=== PATIENT | female | born 1975 | race Caucasian/White ===

== ENCOUNTER 2021-03-16 05:46 | Observation (INO) ==
--- NOTE | 2021-02-22 09:48 | PAT Medication Instructions ---
Medication Instructions Date of Service February 22, 2021 Home Medications biotin 10,000 mcg disintegrating tablet 10,000 mcg PO QAM calcium citrate 500 mg PO BID diphenhydramine HCl 25 mg capsule 25 mg PO TID PRN epinephrine 0.3 mg/0.3 mL injection, auto-injector 0.3 mg IM Q10M PRN escitalopram oxalate 10 mg tablet 10 mg PO Q2D fexofenadine 180 mg tablet 180 mg PO QAM fluconazole 150 mg tablet 150 mg PO WKkrill oil 500 mg capsule 500 mg PO QAM levonorgestrel 20 mcg/24 hours (6 yrs) 52 mg intrauterine device 1 device INTRAUTERINE UD magnesium amino acid chelate 100 mg tablet 100 mg PO QAM mefenamic acid 250 mg capsule 250 mg PO Q6H PRN multivitamin with minerals 1 tab PO QAM valacyclovir 500 mg tablet 500 mg PO Q2D zinc 50 mg tablet 50 mg PO QAM Iron With C-Otc 55 mg PO QAM cholecalciferol (vitamin D3) [Vitamin D3] 125 mcg PO QAM cyanocobalamin (vitamin B-12) 500 mcg INTRANASAL WK turmeric root extract 500 mg PO QAM Continue as directed epinephrine 0.3 mg/0.3 mL injection, auto-injector 0.3 mg IM Q10M PRN (if needed) levonorgestrel 20 mcg/24 hours (6 yrs) 52 mg intrauterine device 1 device INTRAUTERINE UD fluconazole 150 mg tablet 150 mg PO WK ASK your surgeon for instructions mefenamic acid 250 mg capsule 250 mg PO Q6H PRN STOP taking 2 weeks before surgery (or as soon as possible if surgery is within 2 weeks) krill oil 500 mg capsule 500 mg PO QAM magnesium amino acid chelate 100 mg tablet 100 mg PO QAM turmeric root extract 500 mg PO QAM DO NOT take the morning of surgery biotin 10,000 mcg disintegrating tablet 10,000 mcg PO QAM calcium citrate 500 mg PO BID diphenhydramine HCl 25 mg capsule 25 mg PO TID PRN fexofenadine 180 mg tablet 180 mg PO QAM magnesium amino acid chelate 100 mg tablet 100 mg PO QAM multivitamin with minerals 1 tab PO QAM zinc 50 mg tablet 50 mg PO QAM Iron With C-Otc 55 mg PO QAM cholecalciferol (vitamin D3) [Vitamin D3] 125 mcg PO QAM cyanocobalamin (vitamin B-12) 500 mcg INTRANASAL WK Take morning of surgery With a small sip of water, OTHERWISE NOTHING TO EAT OR DRINK AFTER MIDNIGHT: escitalopram oxalate 10 mg tablet 10 mg PO Q2D (if scheduled to take day of surgery) valacyclovir 500 mg tablet 500 mg PO Q2D (if scheduled to take day of surgery) Take evening before surgery calcium citrate 500 mg PO BID diphenhydramine HCl 25 mg capsule 25 mg PO TID PRN (if needed) mefenamic acid 250 mg capsule 250 mg PO Q6H PRN (if needed) Other Notes If you have any questions please call us at [phone] or [phone] or [phone] or [phone]
--- NOTE | 2021-02-26 09:06 | Anesthesiology Consultation ---
Date of Service February 26, 2021 Assessment & Plan (1) Encounter for pre-operative examination: COVID screening: Per assessment on 02/26: Travel screen negative, no known COVID- 19 positive contacts or current COVID-19 related symptoms. Patient fully vaccinated. Surgeon arranging preop COVID testing. Awaiting results. Chart Review Chart Review: Acceptable Risk for Surgery and Patient seen in Pre Admission Testing Teaching & Discussion Pre-Anesthesia Teaching/Discussion Notes: Instructed NPO after midnight before surgery,except medications with 15 cc of water. Medication instructions provided according to the PAT guidelines. History Surgery Operation Date: 03/16/21 07:15 Proposed Procedures p Right Total Knee Arthroplasty - Mark Barrera, Height/Weight Height: 5 ft 10 in Weight: 107.3 kg Allergies Allergy/AdvReac Type Severity Reaction Status Date / Time adhesive Allergy Unknown Tapes/bandaids- Verified 02/23/21 14:26 red swelling, welts strawberry Allergy Unknown Tongue Verified 02/23/21 14:26 swelling, bumps latex AdvReac Unknown Mouth Verified 02/23/21 14:26 swelling (dental procedure/latex gloves) Medications Home Medications Medication Instructions Recorded Confirmed Last Taken biotin 10,000 mcg disintegrating 10,000 mcg PO QAM 10/18/20 02/08/21 Unknown tablet calcium citrate 500 mg PO BID 10/18/20 02/08/21 Unknown diphenhydramine HCl 25 mg capsule 25 mg PO TID PRN 10/18/20 02/08/21 Unknown epinephrine 0.3 mg/0.3 mL 0.3 mg IM Q10M PRN 10/18/20 02/08/21 Unknown injection, auto-injector escitalopram oxalate 10 mg tablet 10 mg PO Q2D 10/18/20 02/08/21 Unknown fexofenadine 180 mg tablet 180 mg PO QAM 10/18/20 02/08/21 Unknown fluconazole 150 mg tablet 150 mg PO WK 10/18/20 02/08/21 Unknown krill oil 500 mg capsule 500 mg PO QAM 10/18/20 02/08/21 Unknown levonorgestrel 20 mcg/24 hours (6 1 device INTRAUTERINE UD 10/18/20 02/08/21 Unknown yrs) 52 mg intrauterine device magnesium amino acid chelate 100 100 mg PO QAM 10/18/20 02/08/21 Unknown mg tablet mefenamic acid 250 mg capsule 250 mg PO Q6H PRN 10/18/20 02/08/21 Unknown multivitamin with minerals 1 tab PO QAM 10/18/20 02/08/21 Unknown valacyclovir 500 mg tablet 500 mg PO Q2D 10/18/20 02/08/21 Unknown zinc 50 mg tablet 50 mg PO QAM 10/18/20 02/08/21 Unknown Iron With C-Otc 55 mg PO QAM 02/08/21 02/08/21 Unknown cholecalciferol (vitamin D3) 125 mcg PO QAM 02/08/21 02/08/21 Unknown [Vitamin D3] cyanocobalamin (vitamin B-12) 500 mcg INTRANASAL WK 02/08/21 02/08/21 Unknown turmeric root extract 500 mg PO QAM 02/08/21 02/08/21 Unknown escitalopram oxalate 10 mg tablet 10 mg PO DAILY 02/26/21 02/26/21 Unknown meloxicam 15 mg tablet 15 mg PO DAILY #30 tab 02/26/21 02/26/21 Unknown Past Medical History Medical History Anxiety Cancer Cervical (precancerous) Chronic back pain LBP Depression Obesity Osteoarthritis Sleep apnea Hx- subsequent 230 pound weight loss 4+ years ago with resolution in issues but no official retesting Stomach ulcer Hx (no recent issues) Exercise / Class Metabolic Activity II 4-5 Yardwork/Stairs/Walk up hill (several flights (at gym)- no chest pain, no sob) Past Family History Family History Mother Family history of reaction to anesthesia SLOW TO WAKE UP Father Family history of diabetes mellitus Other Deep vein thrombosis Diabetes Heart disease Stroke Past Surgical History Surgical History Gastric bypass status for obesity 2017 H/O LEEP History of arthroscopy R/L knee History of cholecystectomy History of foot surgery Rx1, Lx2 History of repair of rotator cuff Rx2, Lx1 Past Anesthesia History Patient: Slow for anesthesia induction, Fast with emergence per pt Mother: "slow to wake" History of PONV No Hx of PONV and No Hx of Motion Sickness Social History Smoking Status: Former smoker Do You Dip or Chew Tobacco: No Smoking End Date: Quit in college Hx Alcohol Use: Yes Alcohol type: wine alcohol intake frequency: a few times a month Hx Substance Use: No Review of Systems Patient denies chest pain, shortness of breath, dyspnea on exertion, fever, chills, cough, wheezing, palpitations. Physical Exam Vital Signs VITALS BP 124/81 P 63 TEMP 98.1 SP02 96%RA RESP 16 PHYSICAL Full cervical extension range of motion. Full TMJ range of motion. TMD 3.5 finger breaths Mallampati Score 2 Dentition: intact, + eight crowns (molars), upper left molar multiple root canals/irritated > dentist monitoring, decision for any further dental work for after surgery per dentist/surgeon Lungs: clear throughout to auscultation Cardiac: regular rate and rhythm, no murmurs noted Spine: normal Extremities: no edema Testing Laboratory Results 02/26/21 10:06 02/26/21 10:06 PT 10.1 Seconds (9.0-12.0) 02/26/21 10:06 INR 1.0 (0.9-1.1) 02/26/21 10:06 APTT 24.7 Seconds (21.0-31.0) 02/26/21 10:06 Blood Type O Positive 02/26/21 10:06 Antibody Screen NEGATIVE 02/26/21 10:06 Electrocardiogram Date: 02/26/21 Findings: + SB @ (54) Chest X-Ray Date: 02/26/21 FINDINGS: Lung volumes are normal. Lungs are clear. There is no pneumothorax or pleural effusion. Cardiac size is normal. Mediastinal contours are normal. There is no evidence for pulmonary edema. Incidental note is made of cholecystectomy clips. IMPRESSION: No acute cardiopulmonary findings.
[2021-02-26 10:31] LABS: Basophils # (auto) 0.04 K/uL (0-0.2); Basophils % (auto) 0.6 %; Eosinophils # (auto) 0.31 K/uL (0-0.5); Eosinophils % (auto) 4.8 %; Hematocrit (blood only) 38.8 % (37-47); Hemoglobin 12.5 g/dL (12.0-16.0); Immature Granulocytes # (auto) 0.01 K/uL (0.00-0.02); Immature Granulocytes % (auto) 0.2 %; Lymphocytes # (auto) 1.67 K/uL (1.2-3.4); Lymphocytes % (auto) 25.9 %; Mean Corpuscular Hemoglobin 29.9 pg (25-34); Mean Corpuscular Hgb Conc 32.2 g/dL (32-36); Mean Corpuscular Volume 92.8 fL (80-100); Mean Platelet Volume 9.5 fL (7.4-10.4); Monocytes # (auto) 0.84 K/uL (0.11-0.59); Neutrophils # (auto) 3.57 K/uL (1.4-6.5); Neutrophils % (auto) 55.5 %; Platelet Count 218 K/uL (130-400); RDW Coefficient of Variation 13.7 % (11.5-14.5); RDW Standard Deviation 46.6 fL (36.4-46.3); Red Blood Count 4.18 M/uL (4.2-5.4); White Blood Count 6.44 K/uL (4.8-10.8)
[2021-02-26 10:49] LABS: Partial Thromboplastin Ratio 0.9; Partial Thromboplastin Time 24.7 Seconds (21.0-31.0); Prothrombin Time 10.1 Seconds (9.0-12.0)
--- NOTE | 2021-02-26 11:02 | XRay Report ---
XR chest Pre-admission PA/Lat CLINICAL HISTORY: Preoperative evaluation. COMPARISON STUDY: No previous studies for comparison. FINDINGS: Lung volumes are normal. Lungs are clear. There is no pneumothorax or pleural effusion. Car diac size is normal. Mediastinal contours are normal. There is no evidence for pulmonary edema. Incid ental note is made of cholecystectomy clips. IMPRESSION: No acute cardiopulmonary findings. ACT 112: Negative or not required by law. Electronically signed by: Manuel Martínez M.D. 02/26/2021 11:01 AM
[2021-02-26 12:16] LABS: BUN Creatinine Ratio 42.3 (10-20); Creatinine Clr Calc Pharmacy 190.3 ml/min; Est GFR (African American) 135.4; Est GFR (Non-African American) 116.8; Potassium 4.5 mmol/L (3.5-5.1)
--- NOTE | 2021-02-26 14:49 | Electrocardiogram Report ---
Test Reason : Blood Pressure : / mmHG Vent. Rate : 054 BPM Atrial Rate : 054 BPM P-R Int : 168 ms QRS Dur : 104 ms QT Int : 402 ms P-R-T Axes : 024 008 054 degrees QTc Int : 381 ms Sinus bradycardia Otherwise normal ECG No previous ECGs available Confirmed by Alfred Edwards ([id number]) on 02/26/2021 2:49:13 PM Referred By: Mark Barrera Confirmed By:Alfred Edwards
--- NOTE | 2021-03-15 07:42 | History & Physical Report ---
Date of Service March 15, 2021 Assessment & Plan (1) Osteoarthritis of right knee: We will proceed with a right total knee arthroplasty. Postoperatively she will be kept overnight in the hospital for postoperative medical management. She will be started on aspirin for DVT prophylaxis. She plans to use energy physical therapy upon discharge. History of Present Illness Chief Complaint: Osteoarthritis of the right knee. Primary Care Provider: Shirley Davis MD Rosalina is a pleasant 45-year-old female who has been dealing with chronic incre asing right knee pain. She does have a history of a right knee arthroscopy done 7 years ago in [facility]. She is been treated conservatively for a long period of time. Unfortunate she is having worsening knee pain. X-rays and clinical examination have been diagnostic for advanced osteoarthritis of the right knee. After failing conservative treatment, she has elected proceed with a right total knee arthroplasty.. Allergies Allergy/AdvReac Type Severity Reaction Status Date / Time adhesive Allergy Unknown Tapes/bandaids- Verified 02/23/21 14:26 red swelling, welts strawberry Allergy Unknown Tongue Verified 02/23/21 14:26 swelling, bumps latex AdvReac Unknown Mouth Verified 02/23/21 14:26 swelling (dental procedure/latex gloves) Home Medications Medication Instructions Recorded Confirmed Type biotin 10,000 mcg disintegrating 10,000 mcg PO QAM 10/18/20 02/08/21 History tablet calcium citrate 500 mg PO BID 10/18/20 02/08/21 History diphenhydramine HCl 25 mg capsule 25 mg PO TID PRN 10/18/20 02/08/21 History epinephrine 0.3 mg/0.3 mL 0.3 mg IM Q10M PRN 10/18/20 02/08/21 History injection, auto-injector escitalopram oxalate 10 mg tablet 10 mg PO Q2D 10/18/20 02/08/21 History fexofenadine 180 mg tablet 180 mg PO QAM 10/18/20 02/08/21 History fluconazole 150 mg tablet 150 mg PO WK 10/18/20 02/08/21 History krill oil 500 mg capsule 500 mg PO QAM 10/18/20 02/08/21 History levonorgestrel 20 mcg/24 hours (6 1 device INTRAUTERINE UD 10/18/20 02/08/21 History yrs) 52 mg intrauterine device magnesium amino acid chelate 100 100 mg PO QAM 10/18/20 02/08/21 History mg tablet mefenamic acid 250 mg capsule 250 mg PO Q6H PRN 10/18/20 02/08/21 History multivitamin with minerals 1 tab PO QAM 10/18/20 02/08/21 History valacyclovir 500 mg tablet 500 mg PO Q2D 10/18/20 02/08/21 History zinc 50 mg tablet 50 mg PO QAM 10/18/20 02/08/21 History Iron With C-Otc 55 mg PO QAM 02/08/21 02/08/21 History cholecalciferol (vitamin D3) 125 mcg PO QAM 02/08/21 02/08/21 History [Vitamin D3] cyanocobalamin (vitamin B-12) 500 mcg INTRANASAL WK 02/08/21 02/08/21 History turmeric root extract 500 mg PO QAM 02/08/21 02/08/21 History escitalopram oxalate 10 mg tablet 10 mg PO DAILY 02/26/21 02/26/21 History meloxicam 15 mg tablet 15 mg PO DAILY #30 tab 02/26/21 02/26/21 Rx Past Med/Surg History Medical History Anxiety Cancer Cervical (precancerous) Chronic back pain LBP Depression Obesity Osteoarthritis Sleep apnea Hx- subsequent 230 pound weight loss 4+ years ago with resolution in issues but no official retesting Stomach ulcer Hx (no recent issues) Surgical History Gastric bypass status for obesity 2016 H/O LEEP History of arthroscopy R/L knee History of cholecystectomy History of foot surgery Rx1, Lx2 History of repair of rotator cuff Rx2, Lx1 Family History Mother Family history of reaction to anesthesia SLOW TO WAKE UP Father Family history of diabetes mellitus Other Deep vein thrombosis Diabetes Heart disease Stroke Social History Smoking Status: Former smoker Second Hand Exposure: No; Hx Alcohol Use: Yes Alcohol type: wine Hx Substance Use: No Preferred Language: [place] Communication Ability: Effective [employer] B[employer] Required: No Beliefs That Will Affect Care: None Current Living Situation: Spouse Feels Safe at Home: Yes Assistive Devices: Brace/Splint/Immobilizer, Glasses and Walker Review of Systems All systems reviewed & are unremarkable except as noted in HPI & below. Physical Exam On physical examination of the right knee, she has decent motion from 0 to 130 degrees. She has no instability. She has tenderness palpation of the distal medial femoral condyle and over the medial joint line.. Constitutional WD/WN, vitals as above Eyes PERRL, conjunctivae normal, anicteric sclerae ENMT external ear and nose normal, oropharynx normal Neck trachea midline, no thyromegaly Respiratory normal respiratory effort Cardiovascular RRR, no murmur, no edema Gastrointestinal (Abdomen) normal bowel sounds, soft, nontender, no hepatosplenomegaly Psychiatric A+Ox3, euthymic affect Results & Data Results & Data Laboratory Results . Diagnostic Findings X-rays of the right knee do show advanced osteoarthritis with joint space narrowing, osteophyte formation, and [id number] articulation.. PG Care Time/CCT Total # of Minutes Spent Total Time Spent with Patient: Total time spent is greater than 50% in coordination of care (as documented) at patient's floor/unit and/or counseling patient: Coding Level of Care Code None Diagnoses Osteoarthritis of right knee M17.11
[2021-03-16] MEDS ORDERED: TRANEXAMIC ACID 1,000 MG **IV Intra-op IV SCH (06:00)
[2021-03-16] MEDS ORDERED: LR 500ML BOLUS, THEN 15ML/HR IV SCH (06:00)
[2021-03-16] MEDS ORDERED: LR 60ML/HR IV SCH (06:00)
[2021-03-16] MEDS ORDERED: TRANEXAMIC ACID 1,000 MG **IV Pre-op IV SCH (06:00)
[2021-03-16] MEDS ORDERED: ceFAZolin 2000MG 2,000 MG/15 ML SYR IV SCH (06:00)
[2021-03-16] MEDS ORDERED: GABAPENTIN 900 MG DOSE PO SCH (06:00)
[2021-03-16] MEDS ORDERED: ROPIVACAINE 0.5% HCL/PF 150 MG, BUPIVACAINE 0.75% MPF 20 ML, EPINEPHrine 30MG/30ML (OR ... INFIL SCH (06:00)
[2021-03-16] MEDS ORDERED: dexAMETHasone 4 MG TAB PO SCH (06:00)
[2021-03-16] MEDS ORDERED: FAMOTIDINE 20 MG TAB PO SCH (06:00)
[2021-03-16] MEDS ORDERED: ACETAMINOPHEN 500 MG TAB PO SCH (06:00)
[2021-03-16] MEDS ORDERED: BUPIVACAINE 0.25% 30 ML VIAL ONE (06:25)
[2021-03-16] MEDS ORDERED: EPINEPHrine INJ 1 MG/ML AMP ONE (06:25)
[2021-03-16] MEDS ORDERED: BUPIVACAINE 0.5 % 5 MG/1 ML PF 10ML VIAL ONE (06:25)
--- NOTE | 2021-03-16 06:42 | History & Physical Bridge Note ---
Date of Service March 16, 2021 History & Physical Bridge Note I have examined the patient, reviewed the History & Physical and in the interval since the performance of the History & Physical I have noted the following changes of clinical significance: no changes noted
[2021-03-16] MEDS ORDERED: MIDAZOLAM HCL 1 MG/ML 2ML VIAL ONE ×2 (06:58→08:12)
[2021-03-16] MEDS ORDERED: fentaNYL citrate 100 MCG/2 ML VIAL ONE (06:58)
[2021-03-16] MEDS ORDERED: ORTHO JOINT ANESTHETIC ONE (07:29)
[2021-03-16] MEDS ORDERED: ATROPINE SULFATE 0.1 MG/ML 10ML SYR IV PRN (07:34)
[2021-03-16] MEDS ORDERED: ONDANSETRON INJ 2 MG/ML 2 ML VIAL IV PRN ×2 (07:34→10:37)
[2021-03-16] MEDS ORDERED: ePHEDrine sulfate 50 MG/ML AMP IV PRN (07:34)
[2021-03-16] MEDS ORDERED: MoRPHine SULFATE 10 MG/ML CARP/VIAL IV PRN (07:34)
[2021-03-16] MEDS ORDERED: PROPOFOL IV EMULSION 10 MG/ML 20 ML VIAL IV ONE ×4 (08:07→08:21)
[2021-03-16] MEDS ORDERED: KETAMINE 50 MG/5 ML SYRINGE ONE (08:13)
--- NOTE | 2021-03-16 09:18 | Operative Report ---
PG Post Operative Report Pre & Post Diagnosis Operation Date: 03/16/21 08:30 Pre-Op Diagnosis: Right Knee Degenerative Joint Disease Post-Op Diagnosis: Right Knee Degenerative Joint Disease I identified the patient and participated in the time-out.: Yes Procedure Operation Date: 03/16/21 08:30 Actual Procedures p Right Total Knee Arthroplasty(Right) - Mark Barrera DO Surgeon Mark Barrera DO Internal Medicine Nurse Mark Loja PAC Estimated Blood Loss 10 Findings Consistent with Post-Op Diagnosis Specimens Right femoral and tibial bone Complications none Disposition Disposition: Recovery Room Indications Rosalina is a pleasant 45-year-old female who is been dealing with chronic increasing right knee pain. She said long-term conservative treatment to the right knee. She had a right knee scope 7 years ago. Unfortunately she has developed significant medial compartment arthritis. After failing years of conservative treatment, she has elected proceed with a right total knee arthroplasty. Description of Procedure Implants used: I used a Ramon Persona total knee arthroplasty system with a size 10 narrow femur, E tibia, 32 patella, and a size 10 medial congruent polyethylene bearing. All components were cemented in place with Simplex HV cement. Rosalina arrived [facility] for the above procedure. She was seen in the preoperative holding area and the operative extremity was identified and signed. She was given a preoperative antibiotic, TXA, a spinal anesthetic and an adductor nerve block. She was taken back to the operating room and laid on the table in supine position. She was given basic sedation. The operative knee was then prepped and draped in sterile fashion. A timeout was done, and the patient and the operative extremity was properly identified. A midline incision was made directly over the patella. Dissection was taken down to the extensor mechanism. A subvastus arthrotomy was used. The medial retinaculum was released and the fat pad was mostly excised. The knee was flexed and the ACL, PCL, and meniscus were removed. A drill was sent down the center of the femoral canal followed by an intramedullary dorcas. Off that dorcas a distal femoral cutting block was placed. 9 mm was resected off the distal femur at 5 of valgus. A posterior referencing AP sizing guide was then placed on the distal femur. The femur measured to be a size 10 narrow. 2 drill holes were placed in 3 of external rotation. A 4-in-1 cutting block was then impacted into place. Anterior, posterior, and chamfer cuts were then made. The proximal tibia was then exposed. An external tibial alignment guide was placed. A tibial cut guide was then anchored in place and the proximal tibia was then resected. The posterior aspect of the knee was then opened up and any additional meniscus fragments and osteophytes were removed. The tibia measured to be a size E. The tibial plate was then placed in the appropriate rotation and the tibia was drilled and punched. Trial components were then placed. I used a size 10 medial congruent polyethylene insert. The knee was brought through a full range of motion and felt to be stable. The peg holes for the femoral component were then drilled. The patella was then everted and 9 mm was resected off the posterior aspect of the patella. The patella measured to be a size 32. 3 peg holes were then drilled. A trial patella was placed. The knee was once again brought through a full range of motion and felt to be stable. Trial components were then removed. The surrounding soft tissues were injected with 100 cc of an orthopedic pain control cocktail. All components were then cemented into place with Simplex HV cement. The final polyethylene insert was then snapped into place. Once cement was dry the tourniquet was deflated. Hemostasis was obtained. A dilute betadyne lavage was then done for 3 minutes. The joint was then irrigated with normal saline solution. The subvastus arthrotomy was then closed with #1 Vicryl suture. The skin was closed with 2-0 Vicryl, 3-0V lock suture, and macey. A Silverlon and a soft compressive dressing were placed. She was then transferred to a hospital bed and taken to the postanesthesia care unit in stable condition. She tolerated the procedure well. Mark Loja PA-C, was present for the entire procedure. He was critical for patient positioning, prepping, draping, retraction exposure, wound closure and application of sterile dressing. I attest to the content of the Intraoperative Record and any orders documented therein. Any exceptions are noted below.
[2021-03-16] MEDS ORDERED: oxyCODONE HCL IR 5 MG TAB (IMMEDIATE RELEASE) PO PRN (10:37)
[2021-03-16] MEDS ORDERED: NALOXONE HCL 0.4 MG/1 ML VIAL/CARP IV PRN (10:37)
[2021-03-16] MEDS ORDERED: METOCLOPRAMIDE HCL INJ 5 MG/ML 2 ML VIAL IV PRN (10:37)
[2021-03-16] MEDS ORDERED: bisacodyL 10 MG SUPP PR PRN (10:37)
[2021-03-16] MEDS ORDERED: MAGNESIUM HYDROXIDE SUSP 30 ML UDC PO PRN (10:37)
[2021-03-16] MEDS ORDERED: HYDROmorphone INJ 0.5 MG/0.5 ML SYR IV PRN (10:37)
[2021-03-16] MEDS ORDERED: EPINEPHrine ADULT AUTO-INJECT 0.3 MG SYR IM PRN (10:37)
[2021-03-16] MEDS ORDERED: MEFENAMIC ACID PO PRN (10:37)
--- NOTE | 2021-03-16 10:47 | XRay Report ---
XR knee RT 1 or 2V routine CLINICAL HISTORY: Surgical Post Op COMPARISON: 10/18/2020 DISCUSSION: There are postsurgical changes of a total right knee arthroplasty and patellar resurfacin g. The femoral tibial components appear well seated. There are overlying skin macey. There is gas p resent within the soft tissues consistent with recent surgery. IMPRESSION: Postsurgical changes of a total right knee arthroplasty. ACT 112: Negative or not required by law. Electronically signed by: Jethro Solano M.D. 03/16/2021 10:45 AM
--- NOTE | 2021-03-16 10:59 | Anesthesiology Progress Note ---
Date of Service March 16, 2021 Anesthesia Post Procedure Vital Signs Vital Signs: Temp Pulse Pulse Resp BP BP Pulse Ox 03/16/21 10:30 36.5 C 52 L 16 128/80 100 03/16/21 10:10 56 L 20 133/80 96 03/16/21 10:00 67 18 135/88 99 03/16/21 09:50 67 14 138/78 98 03/16/21 09:44 36.1 C L 70 17 137/79 100 03/16/21 06:42 37.1 C 69 20 119/69 96 Transfer of Care Handoff Completed per policy Notes Mental Status: alert / awake / arousable and participated in evaluation Patient Amnestic to Procedure: Yes Nausea / Vomiting: adequately controlled Pain: adequately controlled Airway Patency, RR, SpO2: stable & adequate BP & HR: stable & adequate Hydration State: stable & adequate Anesthetic Complications: no major complications apparent and Pt Satisfied with anesthetic care
[2021-03-16] MEDS: KETOROLAC 30 MG/ML VIAL IV SCH ×3 (13:02→23:30)
[2021-03-16] MEDS: ACETAMINOPHEN 500 MG TAB PO SCH ×2 (13:54→21:00)
[2021-03-16] MEDS: valACYclovir HCL 500 MG TABLET PO SCH (13:54)
[2021-03-16] MEDS: SODIUM CHLORIDE 0.9% 1000ML 1,000 ML IV SCH (15:27)
[2021-03-16] MEDS: ceFAZolin 2000MG 2,000 MG/15 ML SYR IV SCH ×2 (15:52→23:30)
[2021-03-16] MEDS ORDERED: SENNA 8.6 MG TAB PO SCH (21:00)
[2021-03-16] MEDS: DOCUSATE SODIUM 100 MG CAP PO SCH (21:00)
[2021-03-16] MEDS: ASPIRIN 81 MG ECTAB PO SCH (21:00)
[2021-03-16] MEDS ORDERED: diphenhydrAMINE Capsule 25 MG CAP PO PRN (21:27)
[2021-03-17] MEDS: SODIUM CHLORIDE 0.9% 1000ML 1,000 ML IV SCH (04:07)
[2021-03-17] MEDS: ACETAMINOPHEN 500 MG TAB PO SCH ×2 (05:44→13:25)
[2021-03-17] MEDS: KETOROLAC 30 MG/ML VIAL IV SCH ×2 (05:44→11:54)
--- NOTE | 2021-03-17 07:37 | Orthopedic Progress Note ---
Date of Service March 17, 2021 Assessment & Plan (1) Status post right knee replacement: Overall she is doing very well. She is now much pain in the right knee. She will be seen by physical therapy today for ambulation and range of motion exercises. She is on aspirin for DVT prophylaxis. She can be discharged home later today. She will follow-up with orthopedics in 2 weeks. Lisa Romano was seen and examined at bedside this morning. Overall she is doing very well. She is not having much pain in the right knee. She has been up and ambulating to the bathroom. She has no complaints.. Review of Systems All systems reviewed & are unremarkable except as noted in HPI & below. Physical Exam On physical examination of the right knee, the dressing is clean and dry. Her leg is out in full extension. She has active dorsiflexion plantarflexion of her right ankle.. Results & Data Results & Data Laboratory Results . Diagnostic Findings Prosthesis to be in anatomic alignment without any evidence of fracture, dislocation, or loosening. PG Care Time/CCT Total # of Minutes Spent Total Time Spent with Patient: Total time spent is greater than 50% in coordination of care (as documented) at patient's floor/unit and/or counseling patient: Coding Level of Care Code 17188 Post Operative Follow-Up Diagnoses Status post right knee replacement Z96.651
--- NOTE | 2021-03-17 07:38 | Discharge Summary ---
Date of Service March 17, 2021 Admission HPI (Per Admitting) Rosalnia is a pleasant 45-year-old female who has been dealing with chronic increasing right knee pain. She does have a history of a right knee arthroscopy done 7 years ago in [facility]. She is been treated conservatively for a long period of time. Unfortunate she is having worsening knee pain. X-rays and clinical examination have been diagnostic for advanced osteoarthritis of the right knee. After failing conservative treatment, she has elected proceed with a right total knee arthroplasty.. Admission Exam (Per Admitting) On physical examination of the right knee, she has decent motion from 0 to 130 degrees. She has no instability. She has tenderness palpation of the distal medial femoral condyle and over the medial joint line.. Principal Diagnosis Same as "Discharge Diagnosis" noted below under Discharge Instructions. Discharge Exam On physical examination of the right knee, the dressing is clean and dry. Her leg is out in full extension. She has active dorsiflexion plantarflexion of her right ankle.. Discharge Data Procedures Performed Operation Date: 03/16/21 08:30 Actual Procedures p Right Total Knee Arthroplasty(Right) - Mark Barrera DO Ordered Studies 03/16/21 05:00 US - OR guided needle placemen Routine Hospital Course (1) Status post right knee replacement: On March 16, [address] [facility] and underwent a right knee replaced without complication. She had a spinal anesthetic. Postoperatively she was started on aspirin for DVT prophylaxis and transferred to the general orthopedic floors. Her hospital course was uneventful. On postop day #1 her H&H was stable and her pain was well controlled. She was able to participate well with physical therapy doing ambulation and range of motion exercises. She was then discharged home. She will follow-up with orthopedics in 2 weeks. PG Care Time/CCT Total # of Minutes Spent Total Time Spent with Patient: Total time spent is greater than 50% in coordination of care (as documented) at patient's floor/unit and/or counseling patient: Discharge Plan Discharge Items Patient Disposition: Home - Home Health Services Reason For Visit: Right Knee Degenerative Joint Disease Discharge Diagnosis: Right knee replacement Activity: As commented below Non-emergency contact: Surgeon Call non-emergency contact if: your wound has increased redness and your wound has increased drainage Follow-up/Referrals: Shirley Davis MD [Primary Care Provider] - Diet: Regular Addtl Attending Provider Instructions: Activity and Therapy Recommendations: * If you are using [facility] then therapy will be provided at your home until they feel you have accomplished all of your goals. * If you are using [facility] then Physical Therapy will be provided until they feel you are ready to start Outpatient Physical Therapy. * If you are not using home therapy then Outpatient Physical Therapy should start about 3-5 days from your day of surgery. Therapy will last about 6-10 weeks * It is important not to put a pillow under your knee when you are relaxing or sleeping. It is just as important to make sure you are getting your knee perfectly straight as it is to regain your knee bend. * You were shown a series of exercises in the hospital. Do these exercises three times each day including the exercises you were shown in physical therapy. * Get up and walk several times each day. For the first four weeks, try not to stand or walk for more than one hour at a time. If you do stand or walk for more than one hour, you will not hurt anything, but your leg will likely swell. * As you feel comfortable, you may change from the walker or crutches to a cane and then to independent walking. Medications: * Narcotic You will likely be sent home from the hospital with a prescription for the narcotic pain medication that worked best throughout your stay. * Aspirin Most patients will be required to take Aspirin 81mg twice a day for 6 weeks after surgery. This is obtained [id number] and a prescription is not necessary. * Other medications may be prescribed for specific circumstances. If you have any questions, please call the office at . * Resume previous home medications unless otherwise instructed TEDs/Elastic Stockings: The white elastic stockings help limit swelling and prevent blood clots from forming in your legs.~ The more you wear them, the more they work. Wear them for six weeks. Dressing Care: You may change the dressing after physical therapy on day 1. Then do daily dry dressing changes. If the incision is not draining then you may leave the macey open to air. If there is a little bit of drainage or if the macey are getting stuck on your clothing then cover the incision with a dry dressing. The macey will be removed at your 2 week follow-up appointment. Showering: You may shower 5 days after the day of surgery. You may shower with the macey exposed. Let soapy water run over the macey and pat them dry. Do not scrub or soak the incision. Things To Watch For: * Drainage from the incision site that occurs more than one week after your surgery. * Increased redness at the incision site. * Fever above 102 degrees Fahrenheit. * Unusual chest pain or shortness of breath. * Call [facility] at with any of the above problems Follow-Up Visit: Follow-up with Dr. Barrera's PA (Mark Loja) 2-3 weeks after your day of surgery. He will remove your macey and answer any questions. If you have any additional questions or concerns, Dr Barrera is usually in the office at the same time and will be available An appointment was probably scheduled when you signed-up for surgery in the office. If you have any questions call Office Instructions: More detailed instructions as well as Frequently Asked Questions were provided in a folder by our office when you signed-up for surgery. Please review these instructions when you get home. If you have any further questions or concerns, please feel free to call the office at [phone] Pending Studies at Discharge: No Stand-Alone Forms: [facility], Smoking Cessation Medications and DC Order Prescriptions: New oxycodone-acetaminophen [Percocet] 5-325 mg tablet 1 tab PO Q6H PRN (Reason: pain) Qty: 60 RF: 0 aspirin 81 mg Tablet,Delayed Release (Dr/Ec) 81 mg PO BID 42 Days Qty: 84 RF: 0 Continued Mirena 20 mcg/24 hours (6 yrs) 52 mg intrauterine device 1 device intrauterine UD RF: 0 fluconazole [Diflucan] 150 mg tablet 150 mg PO WK RF: 0 epinephrine [EpiPen] 0.3 mg/0.3 mL auto-injector 0.3 mg IM Q10M PRN (Reason: Allergy Symptoms) RF: 0 diphenhydramine HCl [Benadryl] 25 mg capsule 25 mg PO TID PRN (Reason: Allergic Reaction) RF: 0 valacyclovir [Valtrex] 500 mg tablet 500 mg PO Q2D RF: 0 mefenamic acid 250 mg capsule 250 mg PO Q6H PRN (Reason: Pain) RF: 0 fexofenadine [Lucia Allergy] 180 mg tablet 180 mg PO QAM RF: 0 calcium citrate 250 mg calcium tablet 500 mg PO BID RF: 0 zinc 50 mg tablet 50 mg PO QAM RF: 0 biotin 10,000 mcg tablet,disintegrating 10,000 mcg PO QAM RF: 0 multivitamin with minerals [Hair,Skin and Nails] Tablet 1 tab PO QAM RF: 0 magnesium amino acid chelate 100 mg tablet 100 mg PO QAM RF: 0 krill oil 500 mg capsule 500 mg PO QAM RF: 0 escitalopram oxalate [Lexapro] 10 mg tablet 10 mg PO DAILY RF: 0 meloxicam [Mobic] 15 mg tablet 15 mg PO DAILY Qty: 30 RF: 2 cholecalciferol (vitamin D3) [Vitamin D3] 125 mcg (5,000 unit) Tablet 125 mcg PO QAM RF: 0 turmeric root extract 500 mg Capsule 500 mg PO QAM RF: 0 cyanocobalamin (vitamin B-12) 500 mcg/spray [place],Non-Aerosol 500 mcg INTRANASAL WK RF: 0 Iron With C-Otc 55 mg PO QAM RF: 0 Discharge Orders: Discharge Order (Routine); Ordered 03/17/21 Ordered By: Mark Barrera Admission Data Admit Date/Time: 03/16/21 09:46 Attending Provider: Mark Barrera Admit Provider: Mark Barrera Primary Care Provider: Shirley Davis
[2021-03-17] MEDS ORDERED: dexAMETHasone 4 MG TAB PO SCH (08:00)
[2021-03-17] MEDS: DOCUSATE SODIUM 100 MG CAP PO SCH (08:10)
[2021-03-17] MEDS: valACYclovir HCL 500 MG TABLET PO SCH (08:10)
[2021-03-17] MEDS: ASPIRIN 81 MG ECTAB PO SCH (08:11)
[2021-03-17] MEDS ORDERED: FEXOFENADINE HCL 180 MG TAB PO SCH (09:00)
[2021-03-17] MEDS ORDERED: ESCITALOPRAM OXALATE 10 MG TAB PO SCH (09:00)
[2021-03-17] MEDS ORDERED: MULTIVITAMIN TAB PO SCH (09:00)
[2021-03-17] MEDS ORDERED: MELOXICAM 7.5 MG TAB PO SCH (12:00)
[2021-03-21] MEDS ORDERED: FLUCONAZOLE 50 MG TAB PO SCH (09:00)
== END 2021-03-17 14:15 | disposition home health service (06) ==
LOC: 3E 05:46 → ASU 05:46
DX: Z79.899 Other long term (current) drug therapy; Z98.84 Bariatric surgery status; Z91.040 Latex allergy status; M17.11 Unilateral primary osteoarthritis, right knee

== ENCOUNTER 2022-10-18 05:08 | Observation (INO) ==
--- NOTE | 2022-09-13 13:08 | PAT Medication Instructions ---
Medication Instructions Date of Service September 13, 2022 Home Medications Medication Instructions Recorded epinephrine 0.3 mg/0.3 mL 0.3 mg (0.3 mL) IM Q10M PRN 03/21/21 injection, auto-injector (EpiPen) Allergy Symptoms #2 ea multivitamin 1 tab PO DAILY #90 tabs 03/23/21 meloxicam 15 mg tablet 15 mg PO DAILY PRN pain #30 tabs 08/12/22 amoxicillin 500 mg tablet 2,000 mg PO ONCE PRN prophylaxis 09/02/22 #4 tabs cyanocobalamin (vitamin B-12) 500 500 mcg intranasal WK status post 09/02/22 mcg/spray nasal spray (Nascobal) bariatric surgery #4 ea fluconazole 150 mg tablet 150 mg PO WK #6 tabs 09/04/22 (Diflucan) biotin 10,000 mcg disintegrating tablet 10,000 mcg PO QAM calcium citrate 500 mg PO BID levonorgestrel 20 mcg/24 hours (8 yrs) 52 mg intrauterine device (Mirena) 1 device intrauterine CONTINOUS magnesium amino acid chelate 100 mg tablet 100 mg PO QAM mefenamic acid 250 mg capsule 250 mg PO Q6H PRN valacyclovir 500 mg tablet (Valtrex) 500 mg PO QAM zinc 50 mg tablet 50 mg PO QAM cholecalciferol (vitamin D3) 125 mcg (5,000 unit) tablet (Vitamin D3) 125 mcg PO QAM diphenhydramine HCl 25 mg tablet (Benadryl Allergy) 25 mg PO HS epinephrine 0.3 mg/0.3 mL injection, auto-injector (EpiPen) 0.3 mg (0.3 mL) IM Q10M PRN multivitamin 1 tab PO DAILY meloxicam 15 mg tablet 15 mg PO DAILY PRN amoxicillin 500 mg tablet 2,000 mg PO ONCE PRN cyanocobalamin (vitamin B-12) 500 mcg/spray nasal spray (Nascobal) 500 mcg intr anasal WK fluconazole 150 mg tablet (Diflucan) 150 mg PO WK escitalopram oxalate 10 mg tablet (Lexapro) 10 mg PO QAM fexofenadine 180 mg tablet 180 mg PO QAM Continue as directed levonorgestrel 20 mcg/24 hours (8 yrs) 52 mg intrauterine device (Mirena) 1 device intrauterine CONTINOUS cyanocobalamin (vitamin B-12) 500 mcg/spray nasal spray (Nascobal) 500 mcg intranasal WK fluconazole 150 mg tablet (Diflucan) 150 mg PO WK epinephrine 0.3 mg/0.3 mL injection, auto-injector (EpiPen) 0.3 mg (0.3 mL) IM Q10M PRN(if needed) amoxicillin 500 mg tablet 2,000 mg PO ONCE PRN(if needed) ASK your surgeon for instructions mefenamic acid 250 mg capsule 250 mg PO Q6H PRN meloxicam 15 mg tablet 15 mg PO DAILY PRN STOP taking 2 weeks before surgery biotin 10,000 mcg disintegrating tablet 10,000 mcg PO QAM DO NOT take the morning of surgery calcium citrate 500 mg PO BID magnesium amino acid chelate 100 mg tablet 100 mg PO QAM zinc 50 mg tablet 50 mg PO QAM cholecalciferol (vitamin D3) 125 mcg (5,000 unit) tablet (Vitamin D3) 125 mcg PO QAM multivitamin 1 tab PO DAILY fexofenadine 180 mg tablet 180 mg PO QAM Take morning of surgery With a small sip of water, OTHERWISE NOTHING TO EAT OR DRINK AFTER MIDNIGHT: valacyclovir 500 mg tablet (Valtrex) 500 mg PO QAM escitalopram oxalate 10 mg tablet (Lexapro) 10 mg PO QAM Take evening before surgery calcium citrate 500 mg PO BID diphenhydramine HCl 25 mg tablet (Benadryl Allergy) 25 mg PO HS Other Notes If you have any questions please call us at [phone] or [phone] or [phone] or [phone]
--- NOTE | 2022-09-17 09:26 | Anesthesiology Consultation ---
Date of Service September 17, 2022 Assessment & Plan (1) Encounter for pre-operative examination: Plan - check BSG and urine test STAT am DOS. - hypoglycemia: pt requesting early surgery time. Kizzy with surgeon's office made aware. - difficult IV stick, IV team marked on OR sheet. - anesthesia history: awareness during multiple surgeries. - upcoming dental procedure-pt verbalized understanding she needs to further discuss this with surgeon's office. - Outpatient joint assessment: Patient is currently scheduled for inpatient pathway. If re-evaluated pending system levels during current pandemic/surgeon requests outpatient pathway, patient is not recommended candidate for outpatient joint program from anesthesia standpoint. Chart Review Chart Review: Acceptable Risk for Surgery and Patient seen in Pre Admission Testing Teaching & Discussion Pre-Anesthesia Teaching/Discussion Notes: Instructed NPO after midnight before surgery, except medications with 15 cc of water. Medication instructions provided according to the PAT guidelines. History Surgery Operation Date: 10/18/22 09:20 Proposed Procedures p Left Total Knee Arthroplasty - Mark Barrera, DO Height/Weight Height: 5 ft 10 in Weight: 126.5 kg Allergies Allergy/AdvReac Type Severity Reaction Status Date / Time adhesive Allergy Severe Tapes/bandaids- Verified 09/13/22 11:07 red swelling, welts strawberry Allergy Intermediate Tongue Verified 09/13/22 11:07 swelling, bumps latex AdvReac Intermediate Mouth Verified 09/13/22 11:07 swelling (dental procedure/latex gloves) Medications Home Medications Medication Instructions Recorded Confirmed Last Taken biotin 10,000 mcg disintegrating 10,000 mcg PO QAM 10/18/20 09/13/22 04/19/21 tablet calcium citrate 500 mg PO BID 10/18/20 09/13/22 04/19/21 08:00 levonorgestrel 20 mcg/24 hours (8 1 device intrauterine CONTINOUS 10/18/20 09/13/22 Unknown yrs) 52 mg intrauterine device (Mirena) magnesium amino acid chelate 100 100 mg PO QAM 10/18/20 09/13/22 04/19/21 mg tablet mefenamic acid 250 mg capsule 250 mg PO Q6H PRN Pain 10/18/20 09/13/22 03/02/21 valacyclovir 500 mg tablet 500 mg PO QAM 10/18/20 09/13/22 04/18/21 (Valtrex) zinc 50 mg tablet 50 mg PO QAM 10/18/20 09/13/22 04/19/21 cholecalciferol (vitamin D3) 125 125 mcg PO QAM 02/08/21 09/13/22 04/19/21 mcg (5,000 unit) tablet (Vitamin D3) diphenhydramine HCl 25 mg tablet 25 mg PO HS 03/21/21 09/13/22 04/19/21 (Benadryl Allergy) epinephrine 0.3 mg/0.3 mL 0.3 mg (0.3 mL) IM Q10M PRN 03/21/21 09/13/22 Unknown injection, auto-injector (EpiPen) Allergy Symptoms #2 ea multivitamin 1 tab PO DAILY #90 tabs 03/23/21 09/13/22 04/19/21 meloxicam 15 mg tablet 15 mg PO DAILY PRN pain #30 tabs 08/12/22 09/13/22 Unknown amoxicillin 500 mg tablet 2,000 mg PO ONCE PRN prophylaxis 09/02/22 09/13/22 Unknown #4 tabs cyanocobalamin (vitamin B-12) 500 500 mcg intranasal WK status post 09/02/22 09/13/22 Unknown mcg/spray nasal spray (Nascobal) bariatric surgery #4 ea fluconazole 150 mg tablet 150 mg PO WK #6 tabs 09/04/22 09/13/22 Unknown (Diflucan) escitalopram oxalate 10 mg tablet 10 mg PO QAM 09/13/22 09/13/22 Unknown (Lexapro) fexofenadine 180 mg tablet 180 mg PO QAM 09/13/22 09/13/22 Unknown Adult Probiotic 09/17/22 Unknown oxycodone-acetaminophen 5 mg-325 1 tab PO Q6H PRN pain #30 tabs 09/17/22 09/17/22 Unknown mg tablet (Percocet) Past Medical History Medical History (Updated 09/17/22 @ 10:52 by Francesca Parker PA-C) Anxiety and depression Borderline anemia Chronic back pain LBP Eye contusion RT>NO VISUAL PROBLEMS History of COVID-19 03/2022>SYMPTOMS RESOLVED History of stomach ulcers Hx of sleep apnea LOST WT Hypoglycemia pt requests early case, OR sheet marked. Pt states will arrange with surgeon's office. Obesity Patient denies h/o stroke, seizures, heart attack, heart failure, HTN, blood clots or blood transfusions. Exercise / Class Metabolic Activity II 4-5 Yardwork/Stairs/Walk up hill (denies CP or SOB with 1 FOS) Past Family History Family History Mother Family history of reaction to anesthesia SLOW TO WAKE UP Father Family history of diabetes mellitus Prostate cancer Other Deep vein thrombosis Diabetes Heart disease Denies family history of Ovarian cancer Myocardial infarction Breast cancer Colorectal cancer Stroke Past Surgical History Surgical History (Updated 09/17/22 @ 15:21 by Francesca Parker PA-C) Gastric bypass status for obesity 2014 H/O LEEP History of anesthesia reaction WAKES UP "VERY FAST"-reports awareness with multiple surgeries History of arthroscopy RT/LEFT KNEE History of cholecystectomy History of esophagogastroduodenoscopy (EGD) History of foot surgery Rx1, Lx2 History of repair of rotator cuff RT X 2 LEFT X 1 History of total knee replacement RT 03/16/21: SAB at L3 + PNB. S/P LASIK surgery of both eyes S/P wisdom tooth extraction Past Anesthesia History No Family Hx of Anesthesia Complications and Other (awareness with multiple surgeries; mother slow to wake) History of PONV No Hx of PONV and No Hx of Motion Sickness Social History Smoking Status: Never smoker Do You Dip or Chew Tobacco: No Hx Alcohol Use: Yes Alcohol type: wine alcohol intake frequency: a few times a month Hx Substance Use: No substance use type: does not use Review of Systems Patient denies chest pain, shortness of breath, dyspnea on exertion, fever, chills, cough, wheezing, or palpitations. Physical Exam Vital Signs Vitals BP 132/80 P 82 TEMP 99 SP02 97% on RA RESP18 Physical Full cervical extension range of motion without pain TMD3.5 finger breadths Mallampati Score 2 Dentition: intact, multiple caps/crowns; denies chipped or loose teeth, implants or bridges Lungs: normal respiratory effort. Clear throughout to auscultation, no adventitious breath sounds Cardiac: regular rate and rhythm, no murmurs noted Carotid arteries: negative bruit bilat Lab Results Anesthesia Preop Results Results Anesthesia Widget: WBC 6.08 K/ul (4.8-10.8) 09/17/22 Hgb 11.2 g/dl (12.0-16.0) L 09/17/22 Hct 35.2 % (34.1-44.9) 09/17/22 Plt 271 K/uL (130-400) 09/17/22 Na 140 mmol/L (136-145) 09/17/22 K 4.3 mmol/L (3.5-5.1) 09/17/22 Cl 108 mmol/L (98-107) H 09/17/22 CO2 25 mmol/L (21-32) 09/17/22 BUN 20 mg/dl (6-23) 09/17/22 Creat 0.51 mg/dl (0.6-1.2) L 09/17/22 Glucose Level 99 mg/dl (70-99(Fasting)) 09/17/22 PT 10.5 Seconds (9.0-12.0) 09/17/22 PTT 26.5 Seconds (21.0-31.0) 09/17/22 INR 1.0 (0.9-1.1) 09/17/22 HA1c 6.1 % (4.5-5.6) H 09/17/22 Blood Type O Positive 09/17/22 Antibody Screen NEGATIVE 09/17/22 Testing Electrocardiogram Date: 09/17/22 NSR, rate 63 bpm Chest X-Ray Date: 09/17/22 The cardiomediastinal silhouette is unremarkable. The lungs and pleural spaces are clear. There is no pneumothorax. The bony thorax appears intact. IMPRESSION: No active disease in the chest. COVID-19 Risk Screen Screening Information COVID-19 Screen Date: 09/17/22 Exposure 21 Days Family/Household +COVID Last 21 Days: No Exposure 10 Days Any COVID Exposure Last 10 Days: No Symptoms Last 10 Days Experienced COVID Sx Last 10 Days: No + COVID 0-90 Days COVID + in Last 0-90 Days: No
--- NOTE | 2022-10-17 09:35 | History & Physical Report ---
Date of Service October 17, 2022 Assessment & Plan (1) Osteoarthritis of left knee: We will proceed with a left total knee arthroplasty. Postoperatively she will be started on aspirin for DVT prophylaxis and kept overnight in the hospital for postop medical management. She plans to use [facility] upon discharge. History of Present Illness Chief Complaint: Osteoarthritis of the left knee. Primary Care Provider: Shirley Davis MD Rosalina is a pleasant 47-year-old female who I did a right knee replacement on in March 2021. She did well with that. Unfortunately, she has been dealing with a lot of left knee pain. X-rays and clinical examination were diagnostic for osteoarthritis of the left knee. After failing the conservative treatment including years of multiple injections, she has elected to proceed with a left total knee arthroplasty. . Allergies Allergy/AdvReac Type Severity Reaction Status Date / Time adhesive Allergy Severe Tapes/bandaids- Verified 09/13/22 11:07 red swelling, welts strawberry Allergy Intermediate Tongue Verified 09/13/22 11:07 swelling, bumps latex AdvReac Intermediate Mouth Verified 09/13/22 11:07 swelling (dental procedure/latex gloves) Home Medications Medication Instructions Recorded Confirmed Type biotin 10,000 mcg disintegrating 10,000 mcg PO QAM 10/18/20 09/13/22 History tablet calcium citrate 500 mg PO BID 10/18/20 09/13/22 History levonorgestrel 20 mcg/24 hours (8 1 device intrauterine CONTINOUS 10/18/20 09/13/22 History yrs) 52 mg intrauterine device (Mirena) magnesium amino acid chelate 100 100 mg PO QAM 10/18/20 09/13/22 History mg tablet mefenamic acid 250 mg capsule 250 mg PO Q6H PRN Pain 10/18/20 09/13/22 History valacyclovir 500 mg tablet 500 mg PO QAM 10/18/20 09/13/22 History (Valtrex) zinc 50 mg tablet 50 mg PO QAM 10/18/20 09/13/22 History cholecalciferol (vitamin D3) 125 125 mcg PO QAM 02/08/21 09/13/22 History mcg (5,000 unit) tablet (Vitamin D3) diphenhydramine HCl 25 mg tablet 25 mg PO HS 03/21/21 09/13/22 History (Benadryl Allergy) epinephrine 0.3 mg/0.3 mL 0.3 mg (0.3 mL) IM Q10M PRN 03/21/21 09/13/22 Rx injection, auto-injector (EpiPen) Allergy Symptoms #2 ea multivitamin 1 tab PO DAILY #90 tabs 03/23/21 09/13/22 Rx meloxicam 15 mg tablet 15 mg PO DAILY PRN pain #30 tabs 08/12/22 09/13/22 Rx amoxicillin 500 mg tablet 2,000 mg PO ONCE PRN prophylaxis 09/02/22 09/13/22 Rx #4 tabs cyanocobalamin (vitamin B-12) 500 500 mcg intranasal WK status post 09/02/22 09/13/22 Rx mcg/spray nasal spray (Nascobal) bariatric surgery #4 ea fluconazole 150 mg tablet 150 mg PO WK #6 tabs 09/04/22 09/13/22 Rx (Diflucan) escitalopram oxalate 10 mg tablet 10 mg PO QAM 09/13/22 09/13/22 History (Lexapro) fexofenadine 180 mg tablet 180 mg PO QAM 09/13/22 09/13/22 History Adult Probiotic 09/17/22 History oxycodone-acetaminophen 5 mg-325 1 tab PO Q6H PRN pain #30 tabs 09/17/22 09/17/22 Rx mg tablet (Percocet) Past Med/Surg History Medical History Anxiety and depression Borderline anemia Chronic back pain LBP Eye contusion RT>NO VISUAL PROBLEMS History of COVID-19 03/2022>SYMPTOMS RESOLVED History of stomach ulcers Hx of sleep apnea LOST WT Hypoglycemia pt requests early case, OR sheet marked. Pt states will arrange with surgeon's office. Obesity Surgical History Gastric bypass status for obesity 2014 H/O LEEP History of anesthesia reaction WAKES UP "VERY FAST"-reports awareness with multiple surgeries History of arthroscopy RT/LEFT KNEE History of cholecystectomy History of esophagogastroduodenoscopy (EGD) History of foot surgery Rx1, Lx2 History of repair of rotator cuff RT X 2 LEFT X 1 History of total knee replacement RT 03/16/21: SAB at L3 + PNB. S/P LASIK surgery of both eyes S/P wisdom tooth extraction Family History Mother Family history of reaction to anesthesia SLOW TO WAKE UP Father Family history of diabetes mellitus Prostate cancer Other Deep vein thrombosis Diabetes Heart disease Denies family history of Ovarian cancer Myocardial infarction Breast cancer Colorectal cancer Stroke Social History Smoking Status: Never smoker Second Hand Exposure: No; Hx Alcohol Use: Yes Alcohol type: wine Alcohol Intake Frequency: Monthly or Less Hx Substance Use: No Preferred Language: Amharic Communication Ability: Effective Visual Impairment: No Limitations Hearing Ability: Normal Regeneration Operator Required: No Beliefs That Will Affect Care: None marital status: Current Living Situation: Spouse current occupational status: employed current occupation: Ground Crew Supervisor for [employer] Feels Safe at Home: Yes Childhood Exposure to Second-Hand Smoke: No Dental Care, Regularly: Yes Physical Activity Frequency: 3-4 Times per Week Seatbelt Use: always Sunscreen Use: Yes Assistive Devices: Glasses Review of Systems All systems reviewed & are unremarkable except as noted in HPI & below. Physical Exam On physical examination of the left knee, she does have a slight varus deformity. She has range of motion of 0 to 120 degrees. No instability. She is pain over the distal medial femoral condyle and over the medial joint line.. Constitutional WD/WN, vitals as above Eyes PERRL, conjunctivae normal, anicteric sclerae ENMT external ear and nose normal, oropharynx normal Neck trachea midline, no thyromegaly Respiratory normal respiratory effort, lungs clear to auscultation Cardiovascular RRR, no murmur, no edema Gastrointestinal (Abdomen) normal bowel sounds, soft, nontender, no hepatosplenomegaly Skin no rashes, warm and dry Psychiatric A+Ox3, euthymic affect Results & Data Results & Data Laboratory Results . Diagnostic Findings X-rays of the left knee show advanced osteoarthritis with joint space narrowing, osteophyte formation, and [id number] articulation. PG Care Time/CCT Total # of Minutes Spent Total Time Spent with Patient: Total time spent is greater than 50% in coordination of care (as documented) at patient's floor/unit and/or counseling patient: Coding Level of Care Code None Diagnoses Osteoarthritis of left knee M17.12
[2022-10-18] MEDS ORDERED: ACETAMINOPHEN 500 MG TAB PO SCH (06:00)
[2022-10-18] MEDS ORDERED: FAMOTIDINE 20 MG TAB PO SCH (06:00)
[2022-10-18] MEDS ORDERED: LR 60ML/HR IV SCH (06:00)
[2022-10-18] MEDS ORDERED: ORTHO JOINT MIX INFIL SCH (06:00)
[2022-10-18] MEDS ORDERED: GABAPENTIN 300 MG CAP PO SCH (06:00)
[2022-10-18] MEDS ORDERED: LR 500ML BOLUS, THEN 15ML/HR IV SCH (06:00)
[2022-10-18] MEDS ORDERED: TRANEXAMIC ACID 1,000 MG **IV Pre-op IV SCH (06:00)
[2022-10-18] MEDS ORDERED: TRANEXAMIC ACID 1,000 MG **IV Intra-op IV SCH (06:00)
[2022-10-18] MEDS ORDERED: dexAMETHasone 4 MG TAB PO SCH (06:00)
[2022-10-18] MEDS ORDERED: KETAMINE 50 MG/5 ML SYRINGE ONE (06:25)
[2022-10-18] MEDS ORDERED: MIDAZOLAM HCL 1 MG/ML 2ML VIAL ONE (06:25)
[2022-10-18] MEDS ORDERED: BUPIVACAINE 0.25% 30 ML VIAL ONE (06:42)
[2022-10-18] MEDS ORDERED: EPINEPHrine INJ 1 MG/ML AMP ONE (06:43)
[2022-10-18] MEDS ORDERED: DEXAMETHASONE SOD INJ 4 MG/ML VIAL ONE (06:43)
--- NOTE | 2022-10-18 06:55 | History & Physical Bridge Note ---
Date of Service October 18, 2022 History & Physical Bridge Note I have examined the patient, reviewed the History & Physical and in the interval since the performance of the History & Physical I have noted the following changes of clinical significance: no changes noted
[2022-10-18] MEDS ORDERED: ORTHO JOINT ANESTHETIC ONE (06:56)
[2022-10-18] MEDS ORDERED: ONDANSETRON INJ 2 MG/ML 2 ML VIAL IV PRN ×2 (07:04→10:12)
[2022-10-18] MEDS ORDERED: PROMETHAZINE HCL 6.25 MG in SODIUM CHLORIDE 0.9% 50 ML IV PRN (07:04)
[2022-10-18] MEDS ORDERED: ATROPINE SULFATE 0.1 MG/ML 10ML SYR IV PRN (07:04)
[2022-10-18] MEDS ORDERED: ePHEDrine sulfate 50 MG/ML AMP IV PRN (07:04)
[2022-10-18] MEDS ORDERED: BUPIVACAINE 0.5 % 5 MG/1 ML PF 10ML VIAL ONE (07:08)
[2022-10-18] MEDS ORDERED: ONDANSETRON INJ 2 MG/ML 2 ML VIAL ONE (07:10)
[2022-10-18] MEDS ORDERED: PROPOFOL IV EMULSION 10 MG/ML 20 ML VIAL IV ONE ×3 (07:10→07:44)
[2022-10-18] MEDS ORDERED: GLYCOPYRROLATE 0.2 MG/ML VIAL ONE (07:10)
[2022-10-18] MEDS ORDERED: LIDOCAINE 2% MPF LOCAL 5 ML VIAL INFIL ONE (07:10)
--- NOTE | 2022-10-18 08:09 | Operative Report ---
PG Post Operative Report Pre & Post Diagnosis Operation Date: 10/18/22 07:00 Pre-Op Diagnosis: Osteoarthritis of left knee Post-Op Diagnosis: Osteoarthritis of left knee I identified the patient and participated in the time-out.: Yes Procedure Operation Date: 10/18/22 07:00 Actual Procedures p Left Total Knee Arthroplasty(Left) - Mark Barrera DO Surgeon Mark Barrera DO Back Up Machine Operator Mark Loja PA-C Estimated Blood Loss 20 Findings Consistent with Post-Op Diagnosis Specimens Left femoral and tibial bone Description of Procedure Implants used: I used a Ramon Persona total knee arthroplasty system with a size 10 narrow femur, E tibia, 31 oval patella, and a size 10 CPS polyethylene bearing. All components were cemented in place with Biomet cement. Rosalina arrived [facility] for the above procedure. She was seen in the preoperative holding area and the operative extremity was identified and signed. She was given a preoperative antibiotic, TXA, a spinal anesthetic and an adductor nerve block. She was taken back to the operating room and laid on the table in supine position. She was given basic sedation. The operative knee was then prepped and draped in sterile fashion. A timeout was done, and the patient and the operative extremity was properly identified. A midline incision was made directly over the patella. Dissection was taken down to the extensor mechanism. A subvastus arthrotomy was used. The medial retinaculum was released and the fat pad was mostly excised. The knee was flexed and the ACL, PCL, and meniscus were removed. A drill was sent down the center of the femoral canal followed by an intramedullary dorcas. Off that dorcas a distal femoral cutting block was placed. 9 mm was resected off the distal femur at 5 of valgus. A posterior referencing AP sizing guide was then placed on the distal femur. The femur measured to be a size 10. 2 drill holes were placed in 3 of external rotation. A 4-in-1 cutting block was then impacted into place. Anterior, posterior, and chamfer cuts were then made. The proximal tibia was then exposed. An external tibial alignment guide was placed. A tibial cut guide was then anchored in place and the proximal tibia was then resected. The posterior aspect of the knee was then opened up and any additional meniscus fragments and osteophytes were removed. The tibia measured to be a size E. The tibial plate was then placed in the appropriate rotation and the tibia was drilled and punched. Trial components were then placed. I used a size 10 CPS polyethylene insert. The knee was brought through a full range of motion and felt to be stable. The peg holes for the femoral component were then drilled. The patella was then everted and 9 mm was resected off the posterior aspect of the patella. The patella measured to be a size 31 oval. 3 peg holes were then drilled. A trial patella was placed. The knee was once again brought through a full range of motion and felt to be stable. Trial components were then removed. The surrounding soft tissues were injected with 100 cc of an orthopedic pain control cocktail. All components were then cemented into place with Biomet cement. The final polyethylene insert was then snapped into place. Once cement was dry the tourniquet was deflated. Hemosta sis was obtained. A dilute betadyne lavage was then done for 3 minutes. The joint was then irrigated with normal saline solution. The subvastus arthrotomy was then closed with #1 Vicryl suture. The skin was closed with 2-0 Vicryl, 3- 0V lock suture, and macey. A soft compressive dressing was placed. She was then transferred to a hospital bed and taken to the postanesthesia care unit in stable condition. She tolerated the procedure well. Mark Loja PA-C, was present for the entire procedure. He was critical for patient positioning, prepping, draping, retraction exposure, wound closure and application of sterile dressing. I attest to the content of the Intraoperative Record and any orders documented therein. Any exceptions are noted below.
[2022-10-18] MEDS: fentaNYL citrate 100 MCG/2 ML VIAL IV PRN ×4 (08:52→09:25)
--- NOTE | 2022-10-18 09:23 | Anesthesiology Progress Note ---
Date of Service October 18, 2022 Anesthesia Post Procedure Vital Signs Vital Signs: Temp Pulse Pulse Resp BP BP Pulse Ox 10/18/22 09:20 66 16 133/66 100 10/18/22 09:10 60 14 136/84 96 10/18/22 09:00 52 L 18 108/74 100 10/18/22 08:50 54 L 18 113/68 100 10/18/22 08:40 53 L 15 106/69 100 10/18/22 08:34 36.0 C L 65 12 112/63 100 10/18/22 05:40 36.8 C 73 20 114/83 97 O2 Del Method O2 Flow Rate 10/18/22 09:20 Nasal Cannula 2 10/18/22 09:10 Nasal Cannula 2 10/18/22 09:00 Room Air 10/18/22 08:50 Room Air 10/18/22 08:40 Room Air 10/18/22 08:34 Room Air 10/18/22 05:40 Room Air Pain Intensity Left Knee: Pain Intensity: 3 Transfer of Care Handoff Completed per policy Notes Mental Status: alert / awake / arousable Patient Amnestic to Procedure: Yes Nausea / Vomiting: adequately controlled Pain: adequately controlled Airway Patency, RR, SpO2: stable & adequate BP & HR: stable & adequate Hydration State: stable & adequate Neuraxial Anesthesia: was administered and sensory block is resolving Anesthetic Complications: no major complications apparent and Pt Satisfied with anesthetic care
--- NOTE | 2022-10-18 09:24 | XRay Report ---
XR knee LT 1 or 2V routine HISTORY: 47 years-old Female Surgical Post Op left knee total joint arthroplasty COMPARISON: Knee radiographs 09/17/2022 TECHNIQUE: 2 views of the left knee FINDINGS: Total joint arthroplasty with patellar resurfacing. Anterior midline skin macey are noted along wit h expected postoperative soft tissue swelling with deep tissue air. No acute fracture or unexpected o paque foreign body. IMPRESSION: Total joint arthroplasty with expected postoperative changes. ACT 112: Negative or not required by law. The above report was generated using voice recognition software. It may contain grammatical, syntax o r spelling errors. Electronically signed by: Richardson Vega M.D. 10/18/2022 9:22 AM
[2022-10-18] MEDS ORDERED: METOCLOPRAMIDE HCL INJ 5 MG/ML 2 ML VIAL IV PRN (10:12)
[2022-10-18] MEDS ORDERED: HYDROmorphone INJ 0.5 MG/0.5 ML SYR IV PRN (10:12)
[2022-10-18] MEDS ORDERED: MAGNESIUM HYDROXIDE SUSP 30 ML UDC PO PRN (10:12)
[2022-10-18] MEDS ORDERED: EPINEPHrine ADULT AUTO-INJECT 0.3 MG SYR IM PRN (10:12)
[2022-10-18] MEDS ORDERED: FLUCONAZOLE 50 MG TAB PO SCH (10:12)
[2022-10-18] MEDS ORDERED: bisacodyL 10 MG SUPP PR PRN (10:12)
[2022-10-18] MEDS ORDERED: NALOXONE HCL 0.4 MG/1 ML VIAL/CARP IV PRN (10:12)
[2022-10-18] MEDS ORDERED: SODIUM CHLORIDE 0.9% 1000ML 1,000 ML IV SCH (10:12)
[2022-10-18] MEDS ORDERED: MEFENAMIC ACID PO PRN (10:12)
[2022-10-18] MEDS: ASPIRIN 81 MG ECTAB PO SCH ×2 (11:24→21:30)
[2022-10-18] MEDS: ESCITALOPRAM OXALATE 10 MG TAB PO SCH (11:25)
[2022-10-18] MEDS: DOCUSATE SODIUM 100 MG CAP PO SCH ×2 (11:25→21:30)
[2022-10-18] MEDS: MULTIVITAMIN TAB PO SCH (11:26)
[2022-10-18] MEDS: FEXOFENADINE HCL 180 MG TAB PO SCH (11:26)
[2022-10-18] MEDS: valACYclovir HCL 500 MG TABLET PO SCH (11:27)
[2022-10-18] MEDS: KETOROLAC 30 MG/ML VIAL IV SCH ×3 (11:28→22:37)
[2022-10-18] MEDS: ceFAZolin 2000MG 2,000 MG/15 ML SYR IV SCH ×2 (14:23→22:37)
[2022-10-18] MEDS: ACETAMINOPHEN 500 MG TAB PO SCH ×2 (14:23→21:31)
[2022-10-18] MEDS: oxyCODONE HCL IR 5 MG TAB (IMMEDIATE RELEASE) PO PRN (18:43)
[2022-10-18] MEDS ORDERED: SENNA 8.6 MG TAB PO SCH (21:00)
[2022-10-18] MEDS ORDERED: diphenhydrAMINE Capsule 25 MG CAP PO SCH (21:00)
[2022-10-19] MEDS: oxyCODONE HCL IR 5 MG TAB (IMMEDIATE RELEASE) PO PRN ×2 (01:15→11:51)
[2022-10-19] MEDS: ACETAMINOPHEN 500 MG TAB PO SCH ×2 (04:40→14:38)
[2022-10-19] MEDS: KETOROLAC 30 MG/ML VIAL IV SCH ×2 (04:40→11:51)
[2022-10-19] MEDS: ESCITALOPRAM OXALATE 10 MG TAB PO SCH (07:56)
[2022-10-19] MEDS: FEXOFENADINE HCL 180 MG TAB PO SCH (07:56)
[2022-10-19] MEDS: valACYclovir HCL 500 MG TABLET PO SCH (07:56)
[2022-10-19] MEDS: ASPIRIN 81 MG ECTAB PO SCH (07:56)
[2022-10-19] MEDS: MULTIVITAMIN TAB PO SCH (07:56)
[2022-10-19] MEDS: DOCUSATE SODIUM 100 MG CAP PO SCH (07:59)
[2022-10-19] MEDS ORDERED: dexAMETHasone 4 MG TAB PO SCH (08:00)
--- NOTE | 2022-10-19 08:08 | Orthopedic Progress Note ---
Date of Service October 19, 2022 Assessment & Plan (1) Status post left knee replacement: Overall she is doing very well. She is not having much pain in the left knee. She will be seen by physical therapy today for ambulation and range of motion exercises. She is on aspirin for DVT prophylaxis. The nursing staff can change her dressing after physical therapy and before discharge. She can be discharged home later today. She will follow with orthopedics in 2 weeks. Lisa Romano was seen and examined bedside this morning. Overall she is doing very well. She is not any much pain in the left knee. She was able to walk to the bathroom this morning. She has no new complaints.. Review of Systems All systems reviewed & are unremarkable except as noted in HPI & below. Physical Exam On physical examination of the left knee, the dressing is clean and dry. Her leg is out in full extension. She has active dorsiflexion plantarflexion of her left ankle.. Results & Data Results & Data Laboratory Results . Diagnostic Findings Postoperative x-rays of the left knee show the prosthesis to be in anatomic alignment without any evidence of fracture, screws, or loosening. PG Care Time/CCT Total # of Minutes Spent Total Time Spent with Patient: Total time spent is greater than 50% in coordination of care (as documented) at patient's floor/unit and/or counseling patient: Coding Level of Care Code 66474 Post Operative Follow-Up Diagnoses Status post left knee replacement Z96.652
--- NOTE | 2022-10-19 08:09 | Discharge Summary ---
Date of Service October 19, 2022 Admission HPI (Per Admitting) Rosalina is a pleasant 47-year-old female who I did a right knee replacement on in March 2021. She did well with that. Unfortunately, she has been dealing with a lot of left knee pain. X-rays and clinical examination were diagnostic for osteoarthritis of the left knee. After failing the conservative treatment including years of multiple injections, she has elected to proceed with a left total knee arthroplasty. . Admission Exam (Per Admitting) On physical examination of the left knee, she does have a slight varus deformity. She has range of motion of 0 to 120 degrees. No instability. She is pain over the distal medial femoral condyle and over the medial joint line.. Principal Diagnosis Same as "Discharge Diagnosis" noted below under Discharge Instructions. Discharge Exam On physical examination of the left knee, the dressing is clean and dry. Her leg is out in full extension. She has active dorsiflexion plantarflexion of her left ankle.. Discharge Data Procedures Performed Operation Date: 10/18/22 07:00 Actual Procedures p Left Total Knee Arthroplasty(Left) - Mark Barrera DO Ordered Studies 10/18/22 05:00 US - OR guided needle placemen Routine Hospital Course (1) Status post left knee replacement: On October 18 Rosalina arrived at [facility] and underwent a left knee replaced without complication. She had a spinal anesthetic. Postoperatively she was started on aspirin for DVT prophylaxis and transferred to the general orthopedic floors. Her hospital course was uneventful. On postop day #1, her vital signs were stable and her pain was well controlled. She was able to speak well with physical therapy doing ambulation and range of motion exercises. She was then discharged home. She will follow-up orthopedics in 2 weeks. PG Care Time/CCT Total # of Minutes Spent Total Time Spent with Patient: Total time spent is greater than 50% in coordination of care (as documented) at patient's floor/unit and/or counseling patient: Discharge Plan Discharge Items Patient Disposition: Home - Home Health Services Reason For Visit: DJD Left Knee Discharge Diagnosis: Left knee replacement Activity: Per Instructions section Non-emergency contact: Surgeon Call non-emergency contact if: your wound has increased redness and your wound has increased drainage Follow-up/Referrals: Shirley Davis MD [Primary Care Provider] - Diet: Regular Addtl Attending Provider Instructions: Activity and Therapy Recommendations: * If you are using [facility] then therapy will be provided at your home until they feel you have accomplished all of your goals. * If you are using [facility] then Physical Therapy will be provided until they feel you are ready to start Outpatient Physical Therapy. * If you are not using home therapy then Outpatient Physical Therapy should start about 3-5 days from your day of surgery. Therapy will last about 6-10 weeks * It is important not to put a pillow under your knee when you are relaxing or sleeping. It is just as important to make sure you are getting your knee perfectly straight as it is to regain your knee bend. * You were shown a series of exercises in the hospital. Do these exercises three times each day including the exercises you were shown in physical therapy. * Get up and walk several times each day. For the first four weeks, try not to stand or walk for more than one hour at a time. If you do stand or walk for more than one hour, you will not hurt anything, but your leg will likely swell. * As you feel comfortable, you may change from the walker or crutches to a cane and then to independent walking. Medications: * Narcotic You will likely be sent home from the hospital with a prescription for the narcotic pain medication that worked best throughout your stay. * Aspirin Most patients will be required to take Aspirin 81mg twice a day for 6 weeks after surgery. This is obtained [id number] and a prescription is not necessary. * Other medications may be prescribed for specific circumstances. If you have any questions, please call the office at . * Resume previous home medications unless otherwise instructed TEDs/Elastic Stockings: The white elastic stockings help limit swelling and prevent blood clots from fo rming in your legs.~ The more you wear them, the more they work. Wear them for six weeks. Dressing Care: The dressing can be changed after physical therapy on postop day #1. Daily dry dressing changes for a few days, especially if the incision is still draining some. If the incision is not draining then you may leave the macey open to air. If there is a little bit of drainage or if the macey are getting stuck on your clothing then cover the incision with a dry dressing. The macey will be removed at your 2 week follow-up appointment. Showering: You may shower 5 days from the day of surgery as long as the incision is no longer draining. You may shower with the macey exposed. Let soapy water run over the macey and pat them dry. Do not scrub or soak the incision. Things To Watch For: * Drainage from the incision site that occurs more than one week after your surgery. * Increased redness at the incision site. * Fever above 102 degrees Fahrenheit. * Unusual chest pain or shortness of breath. * Call [facility] at with any of the above problems Follow-Up Visit: Follow-up with Dr. Barrera's PA (Mark Loja) 2-3 weeks after your day of surgery. He will remove your macey and answer any questions. If you have any additional questions or concerns, Dr Barrera is usually in the office at the same time and will be available An appointment was probably scheduled when you signed-up for surgery in the office. If you have any questions call Office Instructions: More detailed instructions as well as Frequently Asked Questions were provided in a folder by our office when you signed-up for surgery. Please review these instructions when you get home. If you have any further questions or concerns, please feel free to call the office at [phone] Pending Studies at Discharge: No Stand-Alone Forms: My [facility] [address], Smoking Cessation Medications and DC Order Prescriptions: New aspirin 81 mg Tablet,Delayed Release (Dr/Ec) 81 mg PO BID Qty: 0 0RF Continued multivitamin Tablet 1 tab PO DAILY Qty: 90 1RF Rx Instructions: Multivitamin with calcium and iron (BariActiv) meloxicam 15 mg tablet 15 mg PO DAILY PRN (Reason: pain) Qty: 30 2RF Rx Instructions: Take with food amoxicillin 500 mg tablet 2,000 mg PO ONCE PRN (Reason: prophylaxis) Qty: 4 3RF Rx Instructions: ONE HOUR PRIOR TO DENTAL PROCEDURE Nascobal 500 mcg/spray spray,non-aerosol 500 mcg intranasal WK Qty: 4 3RF Rx Instructions: TAKES ON WEDNESDAYS. I spray into nostril once a week fluconazole [Diflucan] 150 mg tablet 150 mg PO WK Qty: 6 0RF Mirena 20 mcg/24 hours (6 yrs) 52 mg intrauterine device 1 device intrauterine CONTINOUS Rx Instructions: placed in 2018 valacyclovir [Valtrex] 500 mg tablet 500 mg PO QAM mefenamic acid 250 mg capsule 250 mg PO Q6H PRN (Reason: Pain) Rx Instructions: administer with food or milk calcium citrate 250 mg calcium tablet 500 mg PO BID zinc 50 mg tablet 50 mg PO QAM biotin 10,000 mcg tablet,disintegrating 10,000 mcg PO QAM magnesium amino acid chelate 100 mg tablet 100 mg PO QAM diphenhydramine HCl [Benadryl Allergy] 25 mg tablet 25 mg PO HS epinephrine [EpiPen] 0.3 mg/0.3 mL auto-injector 0.3 mg IM Q10M PRN (Reason: Allergy Symptoms) Qty: 2 1RF Rx Instructions: for 2 doses. Please proceed to the ER. cholecalciferol (vitamin D3) [Vitamin D3] 125 mcg (5,000 unit) Tablet 125 mcg PO QAM fexofenadine [Lucia] 180 mg Tablet 180 mg PO QAM escitalopram oxalate [Lexapro] 10 mg tablet 10 mg PO QAM Adult Probiotic 1 tab PO QAM oxycodone-acetaminophen [Percocet] 5-325 mg tablet 1 tab PO Q6H PRN (Reason: pain) Qty: 30 0RF Rx Instructions: post op Discharge Orders: Discharge Order (Routine); Ordered 10/19/22 Ordered By: Mark Barrera Admission Data Admit Date/Time: 10/18/22 08:36 Attending Provider: Mark Barrera Admit Provider: Mark Barrera Primary Care Provider: Shirley Davis
== END 2022-10-19 15:38 | disposition home health service (06) ==
LOC: ASU 05:08 → PACUINP 05:08 → 3E 12:13